=== PATIENT | female | born 1995 | race African-American/Black ===

== ENCOUNTER 2017-01-19 11:45 | Emergency (ER) | payer MEDICAID ==
--- NOTE | 2017-01-19 12:11 | ER Document Report ---
ED Medical Screen (RME) - General Stated Complaint: HEADACHES,ABDOMINAL CRAMPS,NAUSEA Notes: patient complains of headache, abdominal cramping, and nauseous for several days. No vomiting or diarrhea, no fever. Patient had Mirena inserted in September 2015, and is concerned about placement. She cannot feel the strings. I have greeted and performed a rapid initial assessment of this patient. A comprehensive ED assessment and evaluation of the patient, analysis of test results and completion of the medical decision making process will be conducted by additional ED providers. TRAVEL OUTSIDE OF THE [place] IN LAST 30 DAYS: No - Related Data Allergies/Adverse Reactions: No Known Allergies Allergy (Verified 06/11/15 23:07) Past Medical History - Past Medical History Cardiac Medical History: Reports: Hx Hypertension Pulmonary Medical History: Reports: Hx Bronchitis Denies: Hx Asthma GI Medical History: Denies: Hx Crohn's Disease, Hx Irritable Bowel, Hx Ulcerative Colitis Past Surgical History: Reports: Hx Section - Immunizations Hx Diphtheria, Pertussis, Tetanus Vaccination: Yes Physical Exam - Vital signs Vitals: Temp Pulse Resp BP Pulse Ox 98.1 F 79 16 128/75 H 100 01/19/17 12:04 01/19/17 12:04 01/19/17 12:04 01/19/17 12:04 01/19/17 12:04 Course - Vital Signs Vital signs: Temp Pulse Resp BP Pulse Ox 98.1 F 79 16 128/75 H 100 01/19/17 12:04 01/19/17 12:04 01/19/17 12:04 01/19/17 12:04 01/19/17 12:04
[2017-01-19 12:55] LABS: APPEARANCE,URINE CLEAR; BILIRUBIN,URINE NEGATIVE (NEGATIVE); GLUCOSE, URINE NEGATIVE (NEGATIVE); KETONES,URINE NEGATIVE (NEGATIVE); LEUKOCYTE ESTERASE,URINE NEGATIVE (NEGATIVE); NITRITE,URINE NEGATIVE (NEGATIVE); PROTEIN,URINE NEGATIVE (NEGATIVE); URINE SPECIFIC GRAVITY 1.004; UROBILINOGEN,URINE NEGATIVE mg/dL (<2.0)
[2017-01-19 12:56] LABS: ABSOLUTE EOSINOPHILS # (AUTO) 0.3 10^3/uL (0.0-0.6); ABSOLUTE LYMPHOCYTES (AUTO) 2.3 10^3/uL (0.5-4.7); ABSOLUTE MONOCYTES (AUTO) 0.4 10^3/uL (0.1-1.4); ABSOLUTE NEUT (AUTO) 1.6 10^3/uL (1.7-8.2); BASOPHILS % (AUTO) 0.7 % (0-2); EOSINOPHILS % (AUTO) 6.3 % (0-6); HEMATOCRIT 41.8 % (36.0-47.0); HEMOGLOBIN 14.2 g/dL (12.0-15.5); HGB HCT DIFFERENCE 0.8; LYMPHOCYTES % (AUTO) 48.7 % (13-45); MEAN CORPUSCULAR HEMOGLOBIN 30.2 pg (27.0-33.4); MEAN CORPUSCULAR HGB CONC 34.1 g/dL (32.0-36.0); MEAN CORPUSCULAR VOLUME 89 fl (80-97); MONOCYTES % (AUTO) 9.7 % (3-13); RED CELL DISTRIBUTION WIDTH 13.3 % (11.5-14.0); SEGMENTED NEUTROPHILS % (AUTO) 34.6 % (42-78); WHITE BLOOD COUNT 4.6 10^3/uL (4.0-10.5)
[2017-01-19 14:34] LABS: ALANINE AMINOTRANSFERASE 37 U/L (9-52); ALBUMIN 5.4 g/dL (3.5-5.0); ALKALINE PHOSPHATASE 64 U/L (38-126); ANION GAP 13 (5-19); ASPARTATE AMINO TRANSFERASE 28 U/L (14-36); BILIRUBIN,DIRECT 0.3 mg/dL (0.0-0.4); BILIRUBIN,TOTAL 1.2 mg/dL (0.2-1.3); BLOOD UREA NITROGEN 10 mg/dL (7-20); CALCIUM 10.5 mg/dL (8.4-10.2); CARBON DIOXIDE 25 mmol/L (22-30); CHLORIDE 105 mmol/L (98-107); CREATININE RESULT 0.74 mg/dL (0.52-1.25); GLUCOSE 77 mg/dL (75-110); SODIUM 143.3 mmol/L (137-145); TOTAL PROTEIN 8.8 g/dL (6.3-8.2)
--- NOTE | 2017-01-19 15:50 | ER Document Report ---
ED GI/ - General Chief Complaint: Abdominal Pain Stated Complaint: HEADACHES,ABDOMINAL CRAMPS,NAUSEA Mode of Arrival: Ambulatory Information source: Patient Notes: Patient presents complaining of lower pelvic cramping and mild headache pain for the past 2 days. Patient states she has had some spotting off and on over the past 2 days. Patient denies any urinary symptoms or vaginal discharge. Patient is concerned that her Mirena is not in its proper location as she has not been able to feel the strings of the Mirena. TRAVEL OUTSIDE OF THE [place] IN LAST 30 DAYS: No - HPI Patient complains to provider of: Pelvic pain Onset: Yesterday Timing/Duration: denies: Gradual Quality of pain: Cramping Pain Level: 2 Location: Pelvis Vaginal bleeding (Compared to normal period): Spotting Sexual history: Active Associated symptoms: denies: Diarrhea, Dysuria, Urinary hesitancy, Urinary frequency, Urinary retention, Urinary urgency, Vaginal discharge, Vomiting - Related Data Allergies/Adverse Reactions: No Known Allergies Allergy (Verified 01/19/17 12:11) Past Medical History - General Information source: Patient Last Menstrual Period: 12/16/2016 - Social History Smoking Status: Never Smoker Chew tobacco use (# tins/day): No Frequency of alcohol use: None Drug Abuse: None Occupation: student Lives with: Family Family History: Reviewed & Not Pertinent - Medical History Medical History: Negative - Past Medical History Cardiac Medical History: Reports: Hx Hypertension Pulmonary Medical History: Reports: Hx Bronchitis Denies: Hx Asthma Renal/ Medical History: Denies: Hx Peritoneal Dialysis GI Medical History: Denies: Hx Crohn's Disease, Hx Irritable Bowel, Hx Ulcerative Colitis Past Surgical History: Reports: Hx Section - Immunizations Hx Diphtheria, Pertussis, Tetanus Vaccination: Yes Review of Systems - Review of Systems Constitutional: No symptoms reported. denies: Fever, Recent illness EENT: No symptoms reported Cardiovascular: No symptoms reported. denies: Chest pain Respiratory: No symptoms reported. denies: Cough, Short of breath Gastrointestinal: Abdominal pain. denies: Nausea, Vomiting Genitourinary: No symptoms reported. denies: Dysuria, Flank pain Female Genitourinary: Vaginal bleeding. denies: Vaginal discharge Musculoskeletal: No symptoms reported. denies: Back pain Skin: No symptoms reported Hematologic/Lymphatic: No symptoms reported Neurological/Psychological: Headaches - Frontal headache, patient states pain is improved at this time Physical Exam - Vital signs Vitals: Temp Pulse Resp BP Pulse Ox 98.1 F 79 16 128/75 H 100 01/19/17 12:04 01/19/17 12:04 01/19/17 12:04 01/19/17 12:04 01/19/17 12:04 - General General appearance: Appears well, Alert In distress: None Notes: PHYSICAL EXAMINATION: GENERAL: Well-appearing and in no acute distress. HEAD: Atraumatic, normocephalic. EYES: sclera anicteric, conjunctiva are normal. ENT: nares patent. Moist mucous membranes. NECK: Normal range of motion, supple without lymphadenopathy LUNGS: CTAB and equal. No wheezes rales or rhonchi. HEART: Regular rate and rhythm without murmurs ABDOMEN: Soft, nontender, normal bowel sounds, no guarding. EXTREMITIES: Normal range of motion, no pitting edema. No cyanosis. BACK: No CVA tenderness NEUROLOGICAL: Cranial nerves grossly intact. Normal speech. Normal gait. PSYCH: Normal mood, normal affect. SKIN: Warm, Dry, normal turgor, no rashes or lesions noted - Genitourinary External exam: Normal Speculum exam: Normal Vaginal bleeding: Mild Bimanuel exam: Normal. No: Cervical motion tender, Adnexal tenderness Notes: No visualized strings of IUD device Course - Vital Signs Vital signs: Temp Pulse Resp BP Pulse Ox 98.6 F 91 12 126/72 H 98 01/19/17 17:24 01/19/17 17:24 01/19/17 17:24 01/19/17 17:24 01/19/17 17:24 - Laboratory Result Diagrams: 01/19/17 12:30 01/19/17 13:58 Laboratory results interpreted by me: 01/19/17 01/19/17 12:30 13:58 Seg Neutrophils % 34.6 L Lymphocytes % 48.7 H Eosinophils % 6.3 H Absolute Neutrophils 1.6 L Calcium 10.5 H Total Protein 8.8 H Albumin 5.4 H 01/19/17 16:58 Labs- Entire Visit 01/19/17 01/19/17 01/19/17 12:30 12:30 12:30 WBC 4.6 RBC 4.70 Hgb 14.2 Hct 41.8 MCV 89 MCH 30.2 MCHC 34.1 RDW 13.3 Plt Count 189 Seg Neutrophils % 34.6 L Lymphocytes % 48.7 H Monocytes % 9.7 Eosinophils % 6.3 H Basophils % 0.7 Absolute Neutrophils 1.6 L Absolute Lymphocytes 2.3 Absolute Monocytes 0.4 Absolute Eosinophils 0.3 Absolute Basophils 0.0 Sodium Cancelled Potassium Cancelled Chloride Cancelled Carbon Dioxide Cancelled Anion Gap Cancelled BUN Cancelled Creatinine Cancelled Est GFR ( Amer) Cancelled Est GFR (Non-Af Amer) Cancelled Glucose Cancelled Calcium Cancelled Total Bilirubin Cancelled Direct Bilirubin Cancelled Indirect Bilirubin Cancelled Neonat Total Bilirubin Cancelled AST Cancelled ALT Cancelled Alkaline Phosphatase Cancelled Total Protein Cancelled Albumin Cancelled Beta HCG, Quant Cancelled Total Beta HCG Cancelled Urine Color STRAW Urine Appearance CLEAR Urine pH 6.0 Ur Specific Sharon 1.004 Urine Protein NEGATIVE Urine Glucose (UA) NEGATIVE Urine Ketones NEGATIVE Urine Blood NEGATIVE Urine Nitrite NEGATIVE Urine Bilirubin NEGATIVE Urine Urobilinogen NEGATIVE Ur Leukocyte Esterase NEGATIVE Urine WBC (Auto) 1 Squamous Epi Cells Auto 1 Urine Ascorbic Acid NEGATIVE Trichomonas (Wet Prep) Vaginal WBC Vaginal RBC Vaginal Yeast 01/19/17 01/19/17 13:58 15:49 WBC RBC Hgb Hct MCV MCH MCHC RDW Plt Count Seg Neutrophils % Lymphocytes % Monocytes % Eosinophils % Basophils % Absolute Neutrophils Absolute Lymphocytes Absolute Monocytes Absolute Eosinophils Absolute Basophils Sodium 143.3 Potassium 4.0 Chloride 105 Carbon Dioxide 25 Anion Gap 13 BUN 10 Creatinine 0.74 Est GFR ( Amer) > 60 Est GFR (Non-Af Amer) > 60 Glucose 77 Calcium 10.5 H Total Bilirubin 1.2 Direct Bilirubin 0.3 Indirect Bilirubin Not Reportable Neonat Total Bilirubin Not Reportable AST 28 ALT 37 Alkaline Phosphatase 64 Total Protein 8.8 H Albumin 5.4 H Beta HCG, Quant < 2.39 Total Beta HCG NEGATIVE Urine Color Urine Appearance Urine pH Ur Specific Sharon Urine Protein Urine Glucose (UA) Urine Ketones Urine Blood Urine Nitrite Urine Bilirubin Urine Urobilinogen Ur Leukocyte Esterase Urine WBC (Auto) Squamous Epi Cells Auto Urine Ascorbic Acid Trichomonas (Wet Prep) NO TRICHOMONAS SEEN Vaginal WBC RARE WBCS SEEN Vaginal RBC 3+ RBCS SEEN Vaginal Yeast NO YEAST SEEN 01/19/17 18:24 - Diagnostic Test Radiology reviewed: Reports reviewed Discharge - Discharge Clinical Impression: Dysmenorrhea Headache Qualifiers: Headache type: unspecified Headache chronicity pattern: unspecified pattern Intractability: not intractable Qualified Code(s): R51 - Headache Condition: Stable Disposition: HOME, SELF-CARE Instructions: Dysmenorrhea ([facility]), Anti-Inflammatory Medication ([facility]), Headache ([facility]) Additional Instructions: Return immediately for any new or worsening symptoms Followup with your primary care provider, call tomorrow to make a followup appointment Ultrasound showed that your IUD was in correct position Follow-up with script writer for further evaluation Prescriptions: Naproxen [Naprosyn 250 Nmg Tablet] 1 tab PO BID #14 tablet Referrals: [facility] [Provider Group] - 01/22/17
[2017-01-19 17:26] VITALS: BP 126/72
[2017-01-19 17:34] LABS: CHLAM PCR NOT DETECTED (NOT DETECT)
== END 2017-01-19 17:15 | disposition home or self-care (01) ==
LOC: ER 11:45
DX: N94.6 Dysmenorrhea, unspecified (principal); R51 Headache; R10.9 Unspecified abdominal pain; R11.0 Nausea
CPT/HCPCS: 36415; 76830; 80053; 81001; 84702; 85025; 87210; 87491; 87591; 93976; 99284

== ENCOUNTER 2017-04-11 08:45 | Emergency (ER) | payer MEDICAID ==
[2017-04-11 08:54] VITALS: BP 129/78
--- NOTE | 2017-04-11 09:30 | ER Document Report ---
HPI - HPI Patient complains to provider of: neck pain Pain Level: 4 Context: 22 yo female c/o right sided neck pain x 4 days. pt injured neck while "rough housing". denies any LOC or hitting her head. no n/v. painful to move neck. + pain to right ear with decreased hearing. pt denies any other injury. Associated Symptoms: None Exacerbated by: Movement Relieved by: Denies Similar symptoms previously: No Recently seen / treated by doctor: No - ROS Systems Reviewed and Negative: Yes All other systems reviewed and negative - REPRODUCTIVE LMP: Reproductive: DENIES: : - DERM Skin Color: Normal Past Medical History - General Information source: Patient - Social History Smoking Status: Former Smoker Chew tobacco use (# tins/day): No Frequency of alcohol use: None Drug Abuse: None Lives with: Family Family History: Reviewed & Not Pertinent Patient has suicidal ideation: No Patient has homicidal ideation: No - Past Medical History Cardiac Medical History: Reports: Hx Hypertension Pulmonary Medical History: Reports: Hx Bronchitis Denies: Hx Asthma Renal/ Medical History: Denies: Hx Peritoneal Dialysis GI Medical History: Denies: Hx Crohn's Disease, Hx Irritable Bowel, Hx Ulcerative Colitis Past Surgical History: Reports: Hx Section - Immunizations Hx Diphtheria, Pertussis, Tetanus Vaccination: No Vertical Provider Document - CONSTITUTIONAL Agree With Documented VS: Yes Exam Limitations: No Limitations - INFECTION CONTROL TRAVEL OUTSIDE OF THE [place] IN LAST 30 DAYS: No - HEENT HEENT: Atraumatic, PERRLA Notes: TMs normal bilat. EAC normal bilat - NECK Neck: Other - c spine nontender. + focal tenderness right sternocleidomastoid and trapezius muscles. neck supple but painful with lateral rotation. - RESPIRATORY Respiratory: Breath Sounds Normal, No Respiratory Distress O2 Sat by Pulse Oximetry: 99 - CARDIOVASCULAR Cardiovascular: Regular Rate, Regular Rhythm - GI/ABDOMEN Gastrointestinal: Abdomen Soft, Abdomen Non-Tender - MUSCULOSKELETAL/EXTREMETIES Musculoskeletal/Extremeties: MAEW, FROM, Non-Tender - NEURO Level of Consciousness: Awake, Alert, Appropriate - DERM Integumentary: Warm, Dry Course - Re-evaluation Re-evalutation: 04/11/17 09:29 pt has no cervical tenderness. all discomfort is soft tissue. no xrays indicated. pt will be discharged home with muscle relaxant and anti- inflammatory medications. gentle stretches demonstrated for patient. pt is stable for discharge and agreeable with plan - Vital Signs Vital signs: Temp Pulse Resp BP Pulse Ox 98.1 F 95 14 129/78 H 99 04/11/17 08:51 04/11/17 08:51 04/11/17 08:51 04/11/17 08:51 04/11/17 08:51 Discharge - Discharge Clinical Impression: Neck muscle strain Qualifiers: Encounter type: initial encounter Qualified Code(s): S16.1XXA - Strain of muscle, fascia and tendon at neck level, initial encounter Condition: Stable Disposition: HOME, SELF-CARE Instructions: Muscle Strain ([facility]), Muscle Relaxers ([facility]), Ibuprofen (General) ( [facility]), Warm Packs ([facility]) Additional Instructions: take medications as prescribed gentle stretches to affected muscles follow up with your primary care if symptoms persist Prescriptions: Ibuprofen [Motrin 800 Mg Tablet] 800 mg PO Q6H #20 tablet Methocarbamol [Robaxin 500 Mg Tablet] 1,000 mg PO Q6 #30 tablet Forms: Return to Work
== END 2017-04-11 09:43 | disposition home or self-care (01) ==
LOC: ER 08:45
DX: S16.1XXA Strain of muscle, fascia and tendon at neck level, initial encounter (principal); M54.2 Cervicalgia; Z87.891 Personal history of nicotine dependence; X58.XXXA Exposure to other specified factors, initial encounter
CPT/HCPCS: 99283

== ENCOUNTER 2017-04-19 22:27 | Emergency (ER) | payer MEDICAID ==
[2017-04-20] MEDS ORDERED: NORMAL SALINE 1000 ML 1,000 ML IV ONE (01:15)
[2017-04-20] MEDS ORDERED: ONDANSETRON HCL INJ/PF 4 MG/2 ML SDV IV ONE (01:16)
[2017-04-20 01:56] LABS: ANION GAP 11 (5-19); BLOOD UREA NITROGEN 7 mg/dL (7-20); CALCIUM 9.6 mg/dL (8.4-10.2); CARBON DIOXIDE 24 mmol/L (22-30); CHLORIDE 106 mmol/L (98-107); CREATINE KINASE 124 U/L (30-135); CREATININE RESULT 0.65 mg/dL (0.52-1.25); GLUCOSE 87 mg/dL (75-110); POTASSIUM 4.1 mmol/L (3.6-5.0); SODIUM 140.5 mmol/L (137-145)
--- NOTE | 2017-04-20 02:10 | ER Document Report ---
ED General - General Chief Complaint: Nausea/Vomiting/Diarrhea Stated Complaint: VOMITING Time Seen by Provider: 04/20/17 00:53 Notes: Patient is a 22-year-old female past medical history of a prior section who presents with multiple complaints including nausea, vomiting, diarrhea and a feeling of generalized malaise after standing out side in the heat for approximately 2 hours. Nothing improves or worsens her symptoms. She denies any history of similar symptoms in the past. She denies any focal weakness, numbness, altered mental status, headache, or focal abdominal pain. She has not seen her primary care doctor regarding today's concerns. Notes that her symptoms are improving time of my assessment receiving IV fluids and antiemetics. TRAVEL OUTSIDE OF THE [place] IN LAST 30 DAYS: No - Related Data Allergies/Adverse Reactions: banana Allergy (Verified 04/11/17 09:16) Swelling of Throat cat dander Allergy (Verified 04/11/17 09:16) Swelling of Throat kiwi Allergy (Verified 04/11/17 09:16) Swelling of Throat Past Medical History - General Information source: Patient - Social History Smoking Status: Never Smoker Frequency of alcohol use: None Drug Abuse: None Lives with: Spouse/Significant other Family History: Reviewed & Not Pertinent Patient has suicidal ideation: No Patient has homicidal ideation: No - Past Medical History Cardiac Medical History: Reports: Hx Hypertension Pulmonary Medical History: Reports: Hx Bronchitis Denies: Hx Asthma Renal/ Medical History: Denies: Hx Peritoneal Dialysis GI Medical History: Denies: Hx Crohn's Disease, Hx Irritable Bowel, Hx Ulcerative Colitis Past Surgical History: Reports: Hx Section - Immunizations Hx Diphtheria, Pertussis, Tetanus Vaccination: No Review of Systems - Review of Systems Notes: Constitutional: Negative for fever. HENT: Negative for sore throat. Eyes: Negative for visual changes. Cardiovascular: Negative for chest pain. Respiratory: Negative for shortness of breath. Gastrointestinal: Positive for nausea, vomiting and diarrhea Genitourinary: Negative for dysuria. Musculoskeletal: Negative for back pain. Skin: Negative for rash. Neurological: Negative for headaches, weakness or numbness. 10 point ROS negative except as marked above and in HPI. Physical Exam - Vital signs Vitals: Temp Pulse Resp BP Pulse Ox 98.3 F 76 18 129/93 H 100 04/19/17 22:51 04/19/17 22:51 04/19/17 22:51 04/19/17 22:51 04/19/17 22:51 Interpretation: Normal Notes: PHYSICAL EXAMINATION: GENERAL: Well-appearing, well-nourished and in no acute distress. HEAD: Atraumatic, normocephalic. EYES: Pupils equal round and reactive to light, extraocular movements intact, sclera anicteric, conjunctiva are normal. ENT: nares patent, oropharynx clear without exudates. Moist mucous membranes. NECK: Normal range of motion, supple without lymphadenopathy LUNGS: Breath sounds clear to auscultation bilaterally and equal. No wheezes rales or rhonchi. HEART: Regular rate and rhythm without murmurs ABDOMEN: Soft, nontender, normoactive bowel sounds. No guarding, no rebound. No masses appreciated. EXTREMITIES: Normal range of motion, no pitting or edema. No cyanosis. NEUROLOGICAL: No focal neurological deficits. Moves all extremities spontaneously and on command. PSYCH: Normal mood, normal affect. SKIN: Warm, Dry, normal turgor, no rashes or lesions noted. Course - Re-evaluation Re-evalutation: 04/20/17 02:06 Patient presents with multiple vague complaints that did not appear to be concerning for any acute life-threatening pathology. Vitals are within normal limits at triage and at time of discharge. Physical examination is unremarkable. Patient has tolerated oral intake without difficulty. Patient was not noted to be in distress at any point during their ER visit. At this time, based on the reassuring evaluation, I do not suspect an acute NV, pulmonary embolus, aortic dissection, acute intra-abdominal pathology, stroke, or sepsis.Will discharge with return precautions and follow-up recommendations. Laboratories are unremarkable and do not demonstrate any evidence of significant dehydration or . Verbal discharge instructions given a the bedside and opportunity for questions given. Medication warnings reviewed. Patient is in agreement with this plan and has verbalized understanding of return precautions and the need for primary care follow-up in the next 24-72 hours. - Vital Signs Vital signs: Temp Pulse Resp BP Pulse Ox 98.3 F 76 18 129/93 H 100 04/19/17 22:51 04/19/17 22:51 04/19/17 22:51 04/19/17 22:51 04/19/17 22:51 - Laboratory Result Diagrams: 04/20/17 01:30 Discharge - Discharge Clinical Impression: Nausea and vomiting Qualifiers: Vomiting type: unspecified Vomiting Intractability: non-intractable Qualified Code(s): R11.2 - Nausea with vomiting, unspecified Diarrhea Qualifiers: Diarrhea type: unspecified type Qualified Code(s): R19.7 - Diarrhea, unspecified Condition: Good Disposition: HOME, SELF-CARE Additional Instructions: Your labs are normal today. Please return to the emergency room immediately if you experience any concerning symptoms including high fevers, severe headache, chest pain, difficulty breathing, abdominal pain, slurred speech, numbness or weakness in your arms or legs, or any other symptom that concerns you.
[2017-04-20 02:39] VITALS: BP 122/82
== END 2017-04-20 02:39 | disposition home or self-care (01) ==
LOC: ER 22:27
DX: R11.2 Nausea with vomiting, unspecified (principal); R19.7 Diarrhea, unspecified; R53.81 Other malaise; Z91.018 Allergy to other foods; Z91.048 Other nonmedicinal substance allergy status; I10 Essential (primary) hypertension
CPT/HCPCS: 99283; 96361; 96374; 36415; 82550; 84703; 80048; J2405; J7030

== ENCOUNTER 2017-05-24 05:32 | Day surgery (SDC) | payer MEDICAID ==
[2017-05-24 06:14] LABS: APPEARANCE,URINE SLIGHTLY-CLOUDY; BILIRUBIN,URINE NEGATIVE (NEGATIVE); GLUCOSE, URINE NEGATIVE (NEGATIVE); KETONES,URINE NEGATIVE (NEGATIVE); LEUKOCYTE ESTERASE,URINE NEGATIVE (NEGATIVE); NITRITE,URINE NEGATIVE (NEGATIVE); PROTEIN,URINE NEGATIVE (NEGATIVE); UROBILINOGEN,URINE NEGATIVE mg/dL (<2.0)
[2017-05-24 06:14] LABS: HEMATOCRIT 37.7 % (36.0-47.0); HEMOGLOBIN 13.1 g/dL (12.0-15.5); HGB HCT DIFFERENCE 1.6; MEAN CORPUSCULAR HEMOGLOBIN 30.8 pg (27.0-33.4); MEAN CORPUSCULAR HGB CONC 34.8 g/dL (32.0-36.0); MEAN CORPUSCULAR VOLUME 89 fl (80-97); RED BLOOD COUNT 4.26 10^6/uL (3.72-5.28); RED CELL DISTRIBUTION WIDTH 13.2 % (11.5-14.0); WHITE BLOOD COUNT 6.5 10^3/uL (4.0-10.5)
[2017-05-24] MEDS ORDERED: LIDOCAINE 2% INJ-PF (20 MG/ML) 10 ML AMPUL ONE (06:59)
[2017-05-24] MEDS ORDERED: FENTANYL CITRATE INJ/PF 100 MCG/2 ML AMPUL ONE (06:59)
[2017-05-24] MEDS ORDERED: MIDAZOLAM 2 MG/2 ML INJ ONE (07:00)
[2017-05-24] MEDS ORDERED: PROPOFOL INJ 200 MG/20 ML VIAL IV ONE (07:00)
[2017-05-24] MEDS ORDERED: OXYCODONE-ACETAMINOPHEN 5-325 MG TABLET PO PRN ×4 (07:41→08:20)
[2017-05-24] MEDS ORDERED: PROMETHAZINE HCL INJ 25 MG/1 ML VIAL IV PRN ×2 (07:41)
[2017-05-24] MEDS ORDERED: MORPHINE SULFATE 10 MG/ML INJ IV PRN (07:41)
[2017-05-24] MEDS ORDERED: ONDANSETRON HCL INJ/PF 4 MG/2 ML SDV IV PRN (07:41)
[2017-05-24] MEDS ORDERED: DIPHENHYDRAMINE HCL 50 MG/ML VIAL IV PRN (07:41)
[2017-05-24] MEDS ORDERED: FENTANYL CITRATE INJ/PF 100 MCG/2 ML AMPUL IV PRN ×3 (07:41)
[2017-05-24] MEDS ORDERED: MEPERIDINE HCL/PF INJ 25 MG/1 ML DISP.SYRIN IV PRN (07:41)
--- NOTE | 2017-05-24 07:57 | Operative Report ---
Operative Report DATE OF SURGERY: 05/24/17 PREOPERATIVE DIAGNOSIS: Retained IUD that could not be removed in the office POSTOPERATIVE DIAGNOSIS: Same OPERATION: IUD removal SURGEON: ANJANA SIFUENTES ANESTHESIA: GA TISSUE REMOVED OR ALTERED: IUD COMPLICATIONS: None ESTIMATED BLOOD LOSS: None INTRAOPERATIVE FINDINGS: Normal female pelvis PROCEDURE: Patient was taken to the OR placed in supine position. General anesthesia was induced. Her perineum and vagina were prepared and draped in sterile fashion. Speculum was placed. The IUD is removed with a stone polyp forceps. All instruments removed and she is taken out of lithotomy and brought out of anesthesia. Patient had had several times in the office to remove the IUD string could not be seen. Her cervical os is very small which I imagine was the difficulty with movement removing the IUD in the office.
[2017-05-24] MEDS ORDERED: IBUPROFEN 800 MG TABLET PO PRN (08:19)
[2017-05-24] MEDS ORDERED: RINGERS SOLUTION,LACTATED 1,000 ML IV PRN (08:19)
[2017-05-24 10:28] VITALS: BP 110/75
== END 2017-05-24 10:10 | disposition home or self-care (01) ==
LOC: OROUT 05:32
PROVIDERS: ATTEND Obstetrics & Gynecology
PROC: 0UPD7HZ Removal of Contraceptive Device from Uterus and Cervix, Via Natural or Artificial Opening (ICD-10-PCS; principal; 2017-05-24 07:30)
DX: Z30.432 Encounter for removal of intrauterine contraceptive device (principal)
CPT/HCPCS: 36415; 84703; 85027; 81001; 58301; J2250; J2704; J3490; 940; J3010

== ENCOUNTER 2017-07-26 18:38 | Emergency (ER) | payer MEDICAID ==
[2017-07-26 18:44] VITALS: BP 133/85
--- NOTE | 2017-07-26 20:20 | ER Document Report ---
ED Respiratory Problem - General Chief Complaint: Congestion Stated Complaint: VOMITING,DIARRHEA,CHILLS,HEADACHE Time Seen by Provider: 07/26/17 20:15 Mode of Arrival: Ambulatory Information source: Patient Notes: Patient presents with numerous complaints. She states she has sinus congestion she has a sore throat she has vomiting diarrhea chills she is having stomach cramps and she also has migraines. She states that she was recently diagnosed with sinusitis but finished all the antibiotics and does not feel any better. She also states she takes Mucinex but this made it worse. She states she has been using her albuterol inhaler but it does not help. She states she would like a different inhaler. There is nothing known to make the symptoms better or worse at this time. The symptoms are constant. They are moderate. TRAVEL OUTSIDE OF THE [place] IN LAST 30 DAYS: No - Related Data Allergies/Adverse Reactions: banana Allergy (Verified 07/26/17 18:42) Swelling of Throat cat dander Allergy (Verified 07/26/17 18:42) Swelling of Throat kiwi Allergy (Verified 07/26/17 18:42) Swelling of Throat Past Medical History - General Information source: Patient - Social History Smoking Status: Never Smoker Chew tobacco use (# tins/day): No Frequency of alcohol use: None Drug Abuse: None Family History: Reviewed & Not Pertinent - Past Medical History Cardiac Medical History: Reports: Hx Hypertension - occ-no meds Denies: Hx Coronary Artery Disease, Hx Heart Attack Pulmonary Medical History: Reports: Hx Bronchitis - hx of Denies: Hx Asthma, Hx COPD, Hx Pneumonia Neurological Medical History: Denies: Hx Cerebrovascular Accident, Hx Seizures Renal/ Medical History: Denies: Hx Peritoneal Dialysis GI Medical History: Denies: Hx Crohn's Disease, Hx Irritable Bowel, Hx Ulcerative Colitis Musculoskeltal Medical History: Denies Hx Arthritis Past Surgical History: Reports: Hx Section - Immunizations Hx Diphtheria, Pertussis, Tetanus Vaccination: Yes Review of Systems - Review of Systems Constitutional: Chills, Fever, Malaise, Weakness Cardiovascular: denies: Chest pain, Palpitations Respiratory: Cough, Short of breath Genitourinary: denies: Dysuria, Frequency Physical Exam - Vital signs Vitals: Temp Pulse Resp BP Pulse Ox 98.9 F 94 16 133/85 H 97 07/26/17 18:44 07/26/17 18:44 07/26/17 18:44 07/26/17 18:44 07/26/17 18:44 Interpretation: Hypertensive - General General appearance: Appears well, Alert - HEENT Head: Normocephalic, Atraumatic Eyes: Normal Pupils: PERRL - Respiratory Respiratory status: No respiratory distress Chest status: Nontender Breath sounds: Normal Chest palpation: Normal - Cardiovascular Rhythm: Regular Heart sounds: Normal auscultation Murmur: No - Abdominal Inspection: Normal Distension: No distension Bowel sounds: Normal Tenderness: Nontender Organomegaly: No organomegaly - Back Back: Normal, Nontender - Extremities General upper extremity: Normal inspection, Nontender, Normal color, Normal ROM , Normal temperature General lower extremity: Normal inspection, Nontender, Normal color, Normal ROM , Normal temperature, Normal weight bearing. No: John's sign - Neurological Neuro grossly intact: Yes Cognition: Normal Orientation: AAOx4 [place] Coma Scale Eye Opening: Spontaneous [place] Coma Scale Verbal: Oriented [place] Coma Scale Motor: Obeys Commands [place] Coma Scale Total: 15 Speech: Normal Motor strength normal: LUE, RUE, LLE, RLE Sensory: Normal - Psychological Associated symptoms: Normal affect, Normal mood - Skin Skin Temperature: Warm Skin Moisture: Dry Skin Color: Normal Course - Vital Signs Vital signs: Temp Pulse Resp BP Pulse Ox 98.9 F 94 16 133/85 H 97 07/26/17 18:44 07/26/17 18:44 07/26/17 18:44 07/26/17 18:44 07/26/17 18:44 Discharge - Discharge Clinical Impression: URI (upper respiratory infection) Condition: Stable Disposition: HOME, SELF-CARE Instructions: Upper Respiratory Illness ([facility]), Viral Syndrome ([facility]) Additional Instructions: Follow-up with your primary care doctor as soon as possible. Prescriptions: Levalbuterol Tartrate [Xopenex Hfa] 2 puff IH Q12 PRN #1 inh PRN Reason: Levofloxacin [Levaquin 750 mg Tablet] 750 mg PO DAILY #7 tablet
== END 2017-07-26 21:47 | disposition home or self-care (01) ==
LOC: ER 18:38
DX: J06.9 Acute upper respiratory infection, unspecified (principal); R09.81 Nasal congestion; R11.10 Vomiting, unspecified; R19.7 Diarrhea, unspecified; R51 Headache; J02.9 Acute pharyngitis, unspecified
CPT/HCPCS: 99283

== ENCOUNTER 2017-12-22 17:53 | Emergency (ER) | payer SELFPAY ==
[2017-12-22] MEDS ORDERED: METOCLOPRAMIDE HCL INJ/PF 10 MG/2 ML SDV IV ONE (19:28)
[2017-12-22] MEDS ORDERED: DIPHENHYDRAMINE HCL 50 MG/ML VIAL IV ONE (19:28)
[2017-12-22] MEDS ORDERED: NORMAL SALINE 1000 ML 1,000 ML IV ONE (19:28)
[2017-12-22] MEDS ORDERED: ACETAMINOPHEN 325 MG TABLET PO ONE (19:30)
--- NOTE | 2017-12-22 19:32 | ER Document Report ---
ED General - General Chief Complaint: Vomiting/Diarrhea Stated Complaint: VOMITING,HEADACHE,DIZZINESS Time Seen by Provider: 12/22/17 19:15 Mode of Arrival: Ambulatory Information source: Patient Notes: Patient presents complaining of headache, vomiting and diarrhea starting around 3 PM today. Patient states that she did have a positive home test recently but that the line was somewhat blurred so she would like to have this confirmed today. Patient does complain of upper abdominal tenderness. Patient denies any urinary symptoms. Patient states she is vomited about 8 times and had diarrhea 5 times today. Patient also reports that she has had some blurred vision since her headache started. TRAVEL OUTSIDE OF THE [place] IN LAST 30 DAYS: No - HPI Onset: This afternoon Onset/Duration: Gradual Quality of pain: Sharp Pain Level: 4 Associated symptoms: Diarrhea, Headache, Nausea, Vomiting. denies: Chest pain, Nonproductive cough, Productive cough, Fever Exacerbated by: Denies Relieved by: Denies Similar symptoms previously: No Recently seen / treated by doctor: No - Related Data Allergies/Adverse Reactions: banana Allergy (Verified 07/26/17 18:42) Swelling of Throat cat dander Allergy (Verified 07/26/17 18:42) Swelling of Throat kiwi Allergy (Verified 07/26/17 18:42) Swelling of Throat Past Medical History - General Information source: Patient - Social History Smoking Status: Former Smoker Chew tobacco use (# tins/day): No Frequency of alcohol use: None Drug Abuse: None Lives with: Family Family History: Reviewed & Not Pertinent Patient has suicidal ideation: No Patient has homicidal ideation: No - Past Medical History Cardiac Medical History: Denies: Hx Coronary Artery Disease, Hx Heart Attack Pulmonary Medical History: Reports: Hx Bronchitis - hx of Denies: Hx Asthma, Hx COPD, Hx Pneumonia Neurological Medical History: Denies: Hx Cerebrovascular Accident, Hx Seizures Renal/ Medical History: Denies: Hx Peritoneal Dialysis GI Medical History: Denies: Hx Crohn's Disease, Hx Irritable Bowel, Hx Ulcerative Colitis Musculoskeltal Medical History: Denies Hx Arthritis Past Surgical History: Reports: Hx Section - Immunizations Hx Diphtheria, Pertussis, Tetanus Vaccination: Yes Review of Systems - Review of Systems Constitutional: No symptoms reported. denies: Fever EENT: Blurred vision. denies: Eye pain Cardiovascular: No symptoms reported. denies: Chest pain Respiratory: No symptoms reported. denies: Cough Gastrointestinal: Abdominal pain, Diarrhea, Nausea, Vomiting, Poor fluid intake Genitourinary: No symptoms reported. denies: Dysuria Female Genitourinary: Musculoskeletal: No symptoms reported. denies: Back pain Skin: No symptoms reported Hematologic/Lymphatic: No symptoms reported Neurological/Psychological: Headaches. denies: Weakness Physical Exam - Vital signs Vitals: Temp Pulse Resp BP Pulse Ox 98.0 F 82 16 120/87 H 100 12/22/17 18:15 12/22/17 18:15 12/22/17 18:15 12/22/17 18:15 12/22/17 18:15 - General General appearance: Appears well, Alert In distress: None - HEENT Head: Normocephalic, Atraumatic Eyes: Normal Conjunctiva: Normal Nasal: Normal Mouth/Lips: Normal Pharynx: Normal Neck: Normal, Supple. No: Lymphadenopathy, Meningismus - Respiratory Respiratory status: No respiratory distress Chest status: Nontender Breath sounds: Normal. No: Rales, Rhonchi, Stridor, Wheezing Chest palpation: Normal - Cardiovascular Rhythm: Regular Heart sounds: S1 appreciated, S2 appreciated Murmur: No - Abdominal Inspection: Normal Distension: No distension Bowel sounds: Normal Tenderness: Tender - epigastric Organomegaly: No organomegaly - Back Back: Normal, Nontender. No: CVA tenderness, Vertebra tenderness - Extremities General upper extremity: Normal inspection, Nontender, Normal ROM General lower extremity: Normal inspection, Nontender, Normal ROM - Neurological Neuro grossly intact: Yes Cognition: Normal Orientation: AAOx4 [place] Coma Scale Eye Opening: Spontaneous [place] Coma Scale Verbal: Oriented [place] Coma Scale Motor: Obeys Commands [place] Coma Scale Total: 15 Speech: Normal - Psychological Associated symptoms: Normal affect, Normal mood - Skin Skin Temperature: Warm Skin Moisture: Dry Skin Color: Normal Course - Re-evaluation Re-evalutation: 12/22/17 20:36 Patient reports that headache pain is resolved, nausea is resolved and abdominal pain is currently resolved at this time. 12/22/17 21:00 Patient continues to deny any headache nausea or abdominal pain at this time. Discussed results of diagnostic test with patient. Patient encouraged to follow -up with primary doctor for recheck. Patient presents with abdominal pain without signs of peritonitis or other life-threatening or serious etiology. Patient appears stable for discharge and has been instructed to return immediately if the symptoms worsen in any way for reevaluation. - Vital Signs Vital signs: Temp Pulse Resp BP Pulse Ox 97.5 F 76 16 115/73 99 12/22/17 21:52 12/22/17 21:52 12/22/17 21:52 12/22/17 21:52 12/22/17 21:52 - Laboratory Result Diagrams: 12/22/17 19:55 12/22/17 19:55 Laboratory results interpreted by me: 12/22/17 12/22/17 12/22/17 19:55 19:55 19:55 WBC 10.8 H Seg Neutrophils % 84.9 H Lymphocytes % 11.0 L Absolute Neutrophils 9.2 H Potassium 3.5 L Urine Ketones 20 H Labs- Entire Visit 12/22/17 12/22/17 12/22/17 19:55 19:55 19:55 WBC 10.8 H RBC 4.79 Hgb 14.2 Hct 41.1 MCV 86 MCH 29.7 MCHC 34.6 RDW 13.5 Plt Count 213 Seg Neutrophils % 84.9 H Lymphocytes % 11.0 L Monocytes % 3.7 Eosinophils % 0.1 Basophils % 0.3 Absolute Neutrophils 9.2 H Absolute Lymphocytes 1.2 Absolute Monocytes 0.4 Absolute Eosinophils 0.0 Absolute Basophils 0.0 Sodium 142.7 Potassium 3.5 L Chloride 106 Carbon Dioxide 25 Anion Gap 12 BUN 7 Creatinine 0.62 Est GFR ( Amer) > 60 Est GFR (Non-Af Amer) > 60 Glucose 90 Calcium 9.8 Total Bilirubin 0.7 Direct Bilirubin 0.1 Neonat Total Bilirubin Not Reportable Neonat Direct Bilirubin Not Reportable Neonat Indirect Bili Not Reportable AST 35 ALT 21 Alkaline Phosphatase 66 Total Protein 7.6 Albumin 4.9 Lipase 48.5 Serum HCG, Qual NEGATIVE Urine Color Urine Appearance Urine pH Ur Specific [place] Urine Protein Urine Glucose (UA) Urine Ketones Urine Blood Urine Nitrite Urine Bilirubin Urine Urobilinogen Ur Leukocyte Esterase Urine WBC (Auto) Urine RBC (Auto) Urine Bacteria (Auto) Squamous Epi Cells Auto Urine Mucus (Auto) Urine Ascorbic Acid 12/22/17 19:55 WBC RBC Hgb Hct MCV MCH MCHC RDW Plt Count Seg Neutrophils % Lymphocytes % Monocytes % Eosinophils % Basophils % Absolute Neutrophils Absolute Lymphocytes Absolute Monocytes Absolute Eosinophils Absolute Basophils Sodium Potassium Chloride Carbon Dioxide Anion Gap BUN Creatinine Est GFR ( Amer) Est GFR (Non-Af Amer) Glucose Calcium Total Bilirubin Direct Bilirubin Neonat Total Bilirubin Neonat Direct Bilirubin Neonat Indirect Bili AST ALT Alkaline Phosphatase Total Protein Albumin Lipase Serum HCG, Qual Urine Color YELLOW Urine Appearance CLEAR Urine pH 9.0 Ur Specific [place] 1.013 Urine Protein NEGATIVE Urine Glucose (UA) NEGATIVE Urine Ketones 20 H Urine Blood NEGATIVE Urine Nitrite NEGATIVE Urine Bilirubin NEGATIVE Urine Urobilinogen NEGATIVE Ur Leukocyte Esterase NEGATIVE Urine WBC (Auto) 1 Urine RBC (Auto) 0 Urine Bacteria (Auto) TRACE Squamous Epi Cells Auto 6 Urine Mucus (Auto) OCC Urine Ascorbic Acid NEGATIVE Discharge - Discharge Clinical Impression: Vomiting and diarrhea, Hypokalemia Headache Qualifiers: Headache type: unspecified Headache chronicity pattern: unspecified pattern Intractability: not intractable Qualified Code(s): R51 - Headache Condition: Stable Disposition: HOME, SELF-CARE Instructions: Acetaminophen, Antinausea Medication ([facility]), Diarrhea, Nonspecific ([facility]), Hypokalemia ([facility]), Intravenous (IV) Fluids ([facility]), Vomiting ( [facility]) Additional Instructions: Return immediately for any new or worsening symptoms Followup with your primary care provider, call tomorrow to make a followup appointment Follow-up with an skidder for visual examination Prescriptions: Promethazine HCl [Phenergan 25 mg Tablet] 25 mg PO Q6H PRN #10 tablet PRN Reason: Forms: Return to Work Referrals: [facility] [Provider Group] - Follow up as needed OFFICE [facility] [Provider Group] - Follow up as needed
[2017-12-22 20:10] LABS: ABSOLUTE LYMPHOCYTES (AUTO) 1.2 10^3/uL (0.5-4.7); ABSOLUTE MONOCYTES (AUTO) 0.4 10^3/uL (0.1-1.4); ABSOLUTE NEUT (AUTO) 9.2 10^3/uL (1.7-8.2); BASOPHILS % (AUTO) 0.3 % (0-2); EOSINOPHILS % (AUTO) 0.1 % (0-6); HEMATOCRIT 41.1 % (36.0-47.0); HEMOGLOBIN 14.2 g/dL (12.0-15.5); MEAN CORPUSCULAR HEMOGLOBIN 29.7 pg (27.0-33.4); MEAN CORPUSCULAR HGB CONC 34.6 g/dL (32.0-36.0); MEAN CORPUSCULAR VOLUME 86 fl (80-97); MONOCYTES % (AUTO) 3.7 % (3-13); PLATELET COUNT 213 10^3/uL (150-450); RED BLOOD COUNT 4.79 10^6/uL (3.72-5.28); RED CELL DISTRIBUTION WIDTH 13.5 % (11.5-14.0); SEGMENTED NEUTROPHILS % (AUTO) 84.9 % (42-78); TOTAL CELLS COUNTED % (AUTO) 100 %; WHITE BLOOD COUNT 10.8 10^3/uL (4.0-10.5)
[2017-12-22] MEDS ORDERED: MAG HYDROX/AL HYDROX/SIMETH SUSP 30 ML UDCUP PO ONE (20:35)
[2017-12-22] MEDS ORDERED: LIDOCAINE 2% VISCOUS SOLN 20 ML UDCUP PO ONE (20:35)
[2017-12-22 20:38] LABS: ALANINE AMINOTRANSFERASE 21 U/L (9-52); ALBUMIN 4.9 g/dL (3.5-5.0); ALKALINE PHOSPHATASE 66 U/L (38-126); ANION GAP 12 (5-19); ASPARTATE AMINO TRANSFERASE 35 U/L (14-36); BILIRUBIN,DIRECT 0.1 mg/dL (0.0-0.4); BILIRUBIN,TOTAL 0.7 mg/dL (0.2-1.3); BLOOD UREA NITROGEN 7 mg/dL (7-20); CALCIUM 9.8 mg/dL (8.4-10.2); CARBON DIOXIDE 25 mmol/L (22-30); CHLORIDE 106 mmol/L (98-107); GLUCOSE 90 mg/dL (75-110); LIPASE 48.5 U/L (23-300); POTASSIUM 3.5 mmol/L (3.6-5.0); SODIUM 142.7 mmol/L (137-145); TOTAL PROTEIN 7.6 g/dL (6.3-8.2)
[2017-12-22 20:46] LABS: BILIRUBIN,URINE NEGATIVE (NEGATIVE); COLOR,URINE YELLOW; GLUCOSE, URINE NEGATIVE (NEGATIVE); KETONES,URINE 20 mg/dL (NEGATIVE); LEUKOCYTE ESTERASE,URINE NEGATIVE (NEGATIVE); NITRITE,URINE NEGATIVE (NEGATIVE); PROTEIN,URINE NEGATIVE (NEGATIVE); URINE SPECIFIC GRAVITY 1.013; UROBILINOGEN,URINE NEGATIVE mg/dL (<2.0)
[2017-12-22 20:47] LABS: APPEARANCE,URINE CLEAR
[2017-12-22] MEDS ORDERED: POTASSIUM CHLORIDE 10 MEQ TABLET.SA PO ONE (20:58)
[2017-12-22 21:54] VITALS: BP 115/73
== END 2017-12-22 21:54 | disposition home or self-care (01) ==
LOC: ER 17:53
DX: R11.2 Nausea with vomiting, unspecified (principal); R10.816 Epigastric abdominal tenderness; E87.6 Hypokalemia; R19.7 Diarrhea, unspecified; R51 Headache; H53.8 Other visual disturbances; Z91.018 Allergy to other foods; Z91.048 Other nonmedicinal substance allergy status; Z87.891 Personal history of nicotine dependence
CPT/HCPCS: 99284; 96361; 96374; 96375; 36415; 83690; 84703; 85025; 80053; 81001; J1200; J2765; J7030

== ENCOUNTER 2019-03-17 15:57 | Emergency (ER) | payer SELFPAY ==
[2019-03-17] MEDS ORDERED: NORMAL SALINE 1000 ML 1,000 ML IV ONE (17:23)
[2019-03-17] MEDS ORDERED: ACETAMINOPHEN 325 MG TABLET PO ONE (17:25)
--- NOTE | 2019-03-17 17:25 | ER Document Report ---
ED Medical Screen (RME) - General Chief Complaint: Abdominal Pain Stated Complaint: ABDOMINAL PAIN Time Seen by Provider: 03/17/19 17:22 Mode of Arrival: Ambulatory Information source: Patient Notes: 24-year-old female with lower abdominal pain she is 2 para 1 5 weeks with cramping and nausea. She states she has not yet had an ultrasound. She denies any vomiting or vaginal bleeding at this time. Will order blood urine and IV fluids at this time. Also have ordered a transvaginal ultrasound. I have greeted and performed a rapid initial assessment of this patient. A comprehensive ED assessment and evaluation of the patient, analysis of test results and completion of medical decision making process will be conducted by an additional ED providers. Dictation of this chart was performed using voice recognition software; therefore, there may be some unintended grammatical errors. TRAVEL OUTSIDE OF THE [place] IN LAST 30 DAYS: No - Related Data Allergies/Adverse Reactions: banana Allergy (Verified 07/26/17 18:42) Swelling of Throat cat dander Allergy (Verified 07/26/17 18:42) Swelling of Throat kiwi Allergy (Verified 07/26/17 18:42) Swelling of Throat Past Medical History - Social History Chew tobacco use (# tins/day): No Frequency of alcohol use: None Drug Abuse: None - Past Medical History Cardiac Medical History: Reports: Hx Hypertension - occ-no meds Denies: Hx Coronary Artery Disease, Hx Heart Attack Pulmonary Medical History: Reports: Hx Bronchitis - hx of Denies: Hx Asthma, Hx COPD, Hx Pneumonia Neurological Medical History: Denies: Hx Cerebrovascular Accident, Hx Seizures Renal/ Medical History: Denies: Hx Peritoneal Dialysis GI Medical History: Denies: Hx Crohn's Disease, Hx Irritable Bowel, Hx Ulcerative Colitis Musculoskeltal Medical History: Denies Hx Arthritis Past Surgical History: Reports: Hx Section - Immunizations Hx Diphtheria, Pertussis, Tetanus Vaccination: Yes Physical Exam - Vital signs Vitals: Temp Pulse Resp BP Pulse Ox 98.5 F 108 H 16 111/66 100 03/17/19 16:28 03/17/19 16:28 03/17/19 16:28 03/17/19 16:28 03/17/19 16:28 Course - Vital Signs Vital signs: Temp Pulse Resp BP Pulse Ox 98.5 F 108 H 16 111/66 100 03/17/19 16:28 03/17/19 16:28 03/17/19 16:28 03/17/19 16:28 03/17/19 16:28
[2019-03-17 18:19] LABS: APPEARANCE,URINE SLIGHTLY-CLOUDY; BILIRUBIN,URINE NEGATIVE (NEGATIVE); COLOR,URINE YELLOW; GLUCOSE, URINE NEGATIVE (NEGATIVE); KETONES,URINE 20 mg/dL (NEGATIVE); LEUKOCYTE ESTERASE,URINE NEGATIVE (NEGATIVE); NITRITE,URINE NEGATIVE (NEGATIVE); PROTEIN,URINE 30 mg/dL (NEGATIVE); URINE SPECIFIC GRAVITY 1.026; UROBILINOGEN,URINE NEGATIVE mg/dL (<2.0)
[2019-03-17 19:07] LABS: ABSOLUTE EOSINOPHILS # (AUTO) 0.1 10^3/uL (0.0-0.6); ABSOLUTE LYMPHOCYTES (AUTO) 2.2 10^3/uL (0.5-4.7); ABSOLUTE MONOCYTES (AUTO) 0.5 10^3/uL (0.1-1.4); ABSOLUTE NEUT (AUTO) 3.7 10^3/uL (1.7-8.2); BASOPHILS % (AUTO) 0.6 % (0-2); EOSINOPHILS % (AUTO) 1.2 % (0-6); HEMOGLOBIN 13.3 g/dL (12.0-15.5); LYMPHOCYTES % (AUTO) 33.6 % (13-45); MEAN CORPUSCULAR HEMOGLOBIN 30.2 pg (27.0-33.4); MEAN CORPUSCULAR HGB CONC 34.2 g/dL (32.0-36.0); MEAN CORPUSCULAR VOLUME 88 fl (80-97); PLATELET COUNT 211 10^3/uL (150-450); RED BLOOD COUNT 4.42 10^6/uL (3.72-5.28); SEGMENTED NEUTROPHILS % (AUTO) 56.6 % (42-78); TOTAL CELLS COUNTED % (AUTO) 100 %; WHITE BLOOD COUNT 6.5 10^3/uL (4.0-10.5)
[2019-03-17 19:12] LABS: ALANINE AMINOTRANSFERASE 30 U/L (9-52); ALBUMIN 4.7 g/dL (3.5-5.0); ALKALINE PHOSPHATASE 55 U/L (38-126); ANION GAP 12 (5-19); ASPARTATE AMINO TRANSFERASE 21 U/L (14-36); BILIRUBIN,DIRECT 0.2 mg/dL (0.0-0.4); BILIRUBIN,TOTAL 0.9 mg/dL (0.2-1.3); BLOOD UREA NITROGEN 8 mg/dL (7-20); CALCIUM 9.9 mg/dL (8.4-10.2); CARBON DIOXIDE 25 mmol/L (22-30); CHLORIDE 101 mmol/L (98-107); GLUCOSE 79 mg/dL (75-110); POTASSIUM 3.6 mmol/L (3.6-5.0); SODIUM 138.2 mmol/L (137-145); TOTAL PROTEIN 7.9 g/dL (6.3-8.2)
--- NOTE | 2019-03-17 20:58 | RADIOLOGY REPORT (SQ) ---
EXAM DESCRIPTION: US TRANSVAGINAL COMPLETED DATE/TME: 03/17/2019 17:22 CLINICAL HISTORY: 24 years, Female, 5 weeks lower abdominal pain COMPARISON: Prior study from 01/19/2017 TECHNIQUE: Transvaginal ultrasound of the pelvis was performed. LIMITATIONS: None. FINDINGS: Uterus measures 9.3 x 5.4 x 5.2 cm in size. An a single intrauterine gestational sac is identified with measurements as follows: [place]-rump length: 0.3 cm Cardiac motion: 112 bpm Yolk sac: Present, measuring 0.4 cm Cervix is closed measuring 2.4 cm in length. Estimated gestational age is 5 weeks and 6 days. An area of ill-defined hypoechogenicity is noted about the periphery of the gestational sac measuring 0.8 x 0.8 x 0.6 cm in size, suspicious for a small amount of perigestational hemorrhage. Right ovary measures 3.1 x 1.6 x 2.5 cm in size. It contains an ovoid hypoechoic lesion measuring 1.7 x 1.3 x 1.4 cm in size, either indicating a corpus luteal or hemorrhagic cyst. Otherwise, the right ovary demonstrates normal low resistance arterial waveforms as well as venous flow. Left ovary measures 2.5 x 1.3 x 1.4 cm in size. It demonstrates normal echogenicity as well as normal low resistance arterial waveforms/venous flow. A small amount of fluid is noted about the cul-de-sac. IMPRESSION: Single viable intrauterine , as above described. Suspect small amount of subchorionic hemorrhage measuring 0.8 x 0.6 x 0.8 cm in size. Hypoechoic lesion located about the right ovary likely either indicates a corpus luteal or hemorrhagic cyst. copyright 2010 [employer]- All Rights Reserved
[2019-03-17] MEDS ORDERED: ONDANSETRON 4 MG TAB.RAPDIS PO ONE (21:46)
--- NOTE | 2019-03-17 21:51 | ER Document Report ---
ED GI/ - General Chief Complaint: Abdominal Pain Stated Complaint: ABDOMINAL PAIN Time Seen by Provider: 03/17/19 17:22 Mode of Arrival: Ambulatory Information source: Patient Notes: 34-year-old female presented to ED for lower abdominal pain. She is 2 para 1. She states she is about 5 weeks with cramping and nausea. She states she has not yet had a ultrasound. She denied any vomiting or vaginal bleeding when I saw her intent. Urine fluids blood and ultrasound were ordered. I have discussed all the results with the patient. She has elected to take Zofran even after I have discussed the risk and benefits. She states she took it was her first and she would like one now. She was medicated with a Zofran while in the emergency room. I have discussed jeanine candy and gum with her. She will look to see if she can find that to use that. I have also given her list of local primary doctors and women's health care's number. Patient will be discharged home to follow-up with the doctor. Ultrasound does show a viable intrauterine with a corpus luteum and a small subchorionic hemorrhage TRAVEL OUTSIDE OF THE [place] IN LAST 30 DAYS: No - HPI Patient complains to provider of: Pelvic pain, . No: Vaginal bleeding, Vaginal discharge, Vaginal pain Onset: Other - Months Timing/Duration: Intermittent Quality of pain: Cramping Severity at maximum: Moderate Severity in ED: Moderate Pain Level: 3 Location: Pelvis Vaginal bleeding (Compared to normal period): None Menstrual period history: : 2 Para: 1 heart tones (bpm): 112 - via ultrasound OB ultrasound done: Yes Associated symptoms: Nausea Exacerbated by: Movement Relieved by: Denies Similar symptoms previously: Yes Recently seen / treated by doctor: Yes - Related Data Allergies/Adverse Reactions: banana Allergy (Verified 07/26/17 18:42) Swelling of Throat cat dander Allergy (Verified 07/26/17 18:42) Swelling of Throat kiwi Allergy (Verified 07/26/17 18:42) Swelling of Throat Past Medical History - General Information source: Patient - Social History Smoking Status: Former Smoker Chew tobacco use (# tins/day): No Frequency of alcohol use: None Drug Abuse: None Lives with: Family Family History: Reviewed & Not Pertinent Patient has suicidal ideation: No Patient has homicidal ideation: No - Past Medical History Cardiac Medical History: Reports: Hx Hypertension - occ-no meds Pulmonary Medical History: Reports: Hx Bronchitis - hx of EENT Medical History: Reports: None Neurological Medical History: Reports: None. Denies: Hx Cerebrovascular Accident, Hx Seizures Endocrine Medical History: Reports: None Renal/ Medical History: Reports: None Malignancy Medical History: Reports: None GI Medical History: Reports: None Musculoskeletal Medical History: Reports None Skin Medical History: Reports None Psychiatric Medical History: Reports: None Traumatic Medical History: Reports: None Infectious Medical History: Reports: None Past Surgical History: Reports: Hx Section - Immunizations Hx Diphtheria, Pertussis, Tetanus Vaccination: Yes Review of Systems - Review of Systems Constitutional: No symptoms reported EENT: No symptoms reported Cardiovascular: No symptoms reported Respiratory: No symptoms reported Gastrointestinal: No symptoms reported, Nausea Genitourinary: No symptoms reported Female Genitourinary: , Other - pelvic pain. denies: Vaginal discharge, Vaginal bleeding Musculoskeletal: No symptoms reported Skin: No symptoms reported Hematologic/Lymphatic: No symptoms reported Neurological/Psychological: No symptoms reported -: Yes All other systems reviewed and negative Physical Exam - Vital signs Vitals: Temp Pulse Resp BP Pulse Ox 98.5 F 108 H 16 111/66 100 03/17/19 16:28 03/17/19 16:28 03/17/19 16:28 03/17/19 16:28 03/17/19 16:28 Interpretation: Normal - General General appearance: Appears well, Alert - HEENT Head: Normocephalic, Atraumatic Eyes: Normal Pupils: PERRL - Respiratory Respiratory status: No respiratory distress Chest status: Nontender Breath sounds: Normal Chest palpation: Normal - Cardiovascular Rhythm: Regular Heart sounds: Normal auscultation Murmur: No - Abdominal Inspection: Normal Distension: No distension Bowel sounds: Normal Tenderness: Tender - pelvic Organomegaly: No organomegaly - Back Back: Normal, Nontender - Extremities General upper extremity: Normal inspection, Nontender, Normal color, Normal ROM, Normal temperature General lower extremity: Normal inspection, Nontender, Normal color, Normal ROM, Normal temperature, Normal weight bearing. No: John's sign - Neurological Neuro grossly intact: Yes Cognition: Normal Orientation: AAOx4 [place] Coma Scale Eye Opening: Spontaneous [place] Coma Scale Verbal: Oriented [place] Coma Scale Motor: Obeys Commands [place] Coma Scale Total: 15 Speech: Normal Motor strength normal: LUE, RUE, LLE, RLE Sensory: Normal - Psychological Associated symptoms: Normal affect, Normal mood - Skin Skin Temperature: Warm Skin Moisture: Dry Skin Color: Normal Course - Re-evaluation Re-evalutation: 03/17/19 21:57 Discussed labs and ultrasound results with patient and written report given to patient to follow-up with primary doctor and [facility]. Patient will be discharged home. Patient will be medicated with Zofran in the emergency room as she is stated she used this with her first and she would like one now for her nausea and vomiting. I have discussed jeanine and jeanine candy with patient for use during her . Patient states she will go by the vitamins tonight and get them started. Patient was discharged home after she verbalized understanding and agreement with treatment plan. 03/17/19 22:22 Patient requested a prescription for Zofran. I have reiterated the risk and benefits for Zofran. Patient states she had it with her first she understands the risks she is taken and she would like the prescription for Zofran because she cannot work or go to school without the Zofran during her . Patient verbalized understanding of the risk of defects. - Vital Signs Vital signs: Temp Pulse Resp BP Pulse Ox 98.1 F 85 18 136/75 H 100 03/17/19 22:16 03/17/19 22:16 03/17/19 22:16 03/17/19 22:16 03/17/19 22:16 - Laboratory Result Diagrams: 03/17/19 18:20 03/17/19 18:20 Laboratory results interpreted by me: 03/17/19 03/17/19 17:05 18:20 Beta HCG, Quant 46074.00 H Urine Protein 30 H Urine Ketones 20 H - Diagnostic Test Radiology reviewed: Image reviewed, Reports reviewed Discharge - Discharge Clinical Impression: Pelvic pain affecting in first trimester, antepartum, Nausea Subchorionic hematoma in first trimester Qualifiers: Fetus number: single or unspecified fetus Qualified Code(s): O41.8X10 - Other specified disorders of amniotic fluid and membranes, first trimester, not applicable or unspecified Condition: Stable Disposition: HOME, SELF-CARE Instructions: Family Physicians / Practices, [facility] ([facility] Additional Instructions: Pelvic Pain in Lower abdominal pain during can have many causes. We look for serious causes such as appendicitis, tubal , miscarriage, placental separation, or urinary tract infection. Less serious causes of pain include corpus luteum cyst (ovarian cyst of ) or stretching of the pelvic tissues by the enlarging uterus. Sometimes the pain comes from the bowels. If no specific cause for the pain is found, we attribute the pain to stretching of the uterine ligaments. This is called "round ligament strain." It is not dangerous. Just rest until the pain goes away. Call us or come back for reexamination if any problems occur, such as: (1) Pain that becomes more severe, steady, or becomes concentrated in one specific area. Also, pain that is more severe with movement or coughing. (2) Vomiting that persists or becomes more frequent. (3) Blood in the vomitus, urine, or bowel movements. Blood in the stool may have a tarry or black appearance. (4) Shaking chills or fever greater than 100 degrees. (5) The abdomen becomes more distended or swollen. (6) Bowel movements cease. (7) Vaginal bleeding. Nausea or Vomiting, Nonspecific Vomiting (or nausea without vomiting) can be caused by many different problems. Of course, it can mean that something's wrong with the stomach, such as "stomach flu," ulcers, or inflammation. But it can also be a symptom of a problem that has nothing to do with the stomach or intestines. Vomiting is common with severe headaches, earaches, and tonsillitis. We see it with pneumonia or heart attacks. Drugs can cause nausea. Many abdominal problems cause vomiting; for example, gallstones, kidney stones, pancreatitis, and intestinal obstruction (blocked bowels). In most cases, curing the vomiting depends on fixing the problem that caused it. For temporary relief, we may use an anti-nausea medicine. For home use, we can prescribe suppositories, chewable pills, pills that dissolve in the mouth, or liquid anti-nausea drugs. If the vomiting seems to be caused by a problem in the stomach, acid-suppressing drugs may be prescribed as well. It's important to avoid dehydration. Sip clear liquids. Take increasing amounts of fluid over the first 24 hours. Then start small amounts of bland foods (such as dry toast, applesauce, mashed potato). Avoid aspirin, tobacco, and alcohol. Gradually resume your usual diet. If the vomiting worsens, if the problem that's making you vomit worsens, or if there's evidence of bleeding in the stomach (such as black, tarry stool, bloody or black vomit, or lightheadedness), you should return immediately. Call your doctor if you aren't improved in 24 to 36 hours. Antinausea Medication You have been given a medication to suppress nausea and vomiting. This type of medication can be given as a shot, pill, or suppository. It will usually last for many hours. Pills and shots usually last six to eight hours, suppositories last about 12 hours. For the typical illness, only one or two doses of the medication may be necessary. Mild lightheadedness may occur. This type of medicine can cause drowsiness. Do not drive or operate dangerous machinery while under its influence. Do not mix with alcohol. See your doctor at once if you have muscle spasms or tightness, or uncontrollable motions (particularly of the neck, mouth, or jaw). Persistent vomiting or severe lightheadedness should also be evaluated by the physician. Jeanine sometimes will help with nausea with . You can buy this at the [employer] store. Please go by [employer] as a health food store and try to get some jeanine to help with your nausea. You have elected to take a Zofran at this time. You state you used Zofran with your first and would like one tonight for your nausea. I have discussed your ultrasound and lab results with you and given you a written report of these results. You do have a small subchorionic bleed which is a small amount of blood between the placenta and the uterus you also have a ovarian cyst which is probably a corpus luteum which is normal in early . These follow-up with your primary doctor and your [facility]. FOLLOW-UP CARE: If you have been referred to a physician for follow-up care, call the physicians office for an appointment as you were instructed or within the next two days. If you experience worsening or a significant change in your symptoms, notify the physician immediately or return to the Emergency Department at any time for re-evaluation. Prescriptions: Ondansetron [Zofran Odt 4 mg Tablet] 1 tab PO Q6H #15 tab.rapdis Forms: Return to School, Return to Work
[2019-03-17 22:18] VITALS: BP 136/75
== END 2019-03-17 22:27 | disposition home or self-care (01) ==
LOC: ER 15:57
DX: O46.91 Antepartum hemorrhage, unspecified, first trimester (principal); O26.891 Other specified pregnancy related conditions, first trimester; R10.30 Lower abdominal pain, unspecified; R11.0 Nausea; R10.2 Pelvic and perineal pain; O16.1 Unspecified maternal hypertension, first trimester; Z3A.01 Less than 8 weeks gestation of pregnancy; Z87.891 Personal history of nicotine dependence
CPT/HCPCS: 99284; 96360; 36415; 84702; 85025; 80053; 81001; 76817; 93976; S0119; J7030

== ENCOUNTER 2020-11-07 20:40 | Emergency (ER) | payer MEDICAID ==
--- NOTE | 2020-11-07 21:26 | ER Document Report ---
ED Medical Screen (RME) - General Chief Complaint: Abdominal Pain Stated Complaint: ABDOMINAL PAIN Time Seen by Provider: 11/07/20 21:18 Notes: HPI: 25-year-old female who is a A2 presenting for evaluation of left pelvic pain over the last 2 to 3 days with vaginal spotting when wiping. Has not seen POLITICAL ADVISOR for this found out she was 3 days ago. Denies fever has had some nausea no vomiting. PHYSICAL EXAMINATION: exam deferred in triage. Mild tenderness across the suprapubic left pelvis on palpation I have greeted and performed a rapid initial assessment of this patient. A comprehensive ED assessment and evaluation of the patient, analysis of test results and completion of medical decision making process will be conducted by an additional ED providers. Please note that clinical decision making for this patient was made during the 2019 pandemic of novel coronavirus which caused a significant strain on the healthcare system including at this particular facility. Criteria for admission discharge and level of care decisions as well as treatment decisions have necessarily changed TRAVEL OUTSIDE OF THE [place] IN LAST 30 DAYS: No - Related Data Allergies/Adverse Reactions: banana Allergy (Verified 07/26/17 18:42) Swelling of Throat cat dander Allergy (Verified 07/26/17 18:42) Swelling of Throat kiwi Allergy (Verified 07/26/17 18:42) Swelling of Throat Past Medical History - Past Medical History Cardiac Medical History: Reports: Hx Hypertension - occ-no meds Denies: Hx Coronary Artery Disease, Hx Heart Attack Pulmonary Medical History: Reports: Hx Bronchitis - hx of Denies: Hx Asthma, Hx COPD, Hx Pneumonia Neurological Medical History: Denies: Hx Cerebrovascular Accident, Hx Seizures Renal/ Medical History: Denies: Hx Peritoneal Dialysis GI Medical History: Denies: Hx Crohn's Disease, Hx Irritable Bowel, Hx Ulcerative Colitis Musculoskeltal Medical History: Denies Hx Arthritis Past Surgical History: Reports: Hx Section - Immunizations Hx Diphtheria, Pertussis, Tetanus Vaccination: Yes Physical Exam - Vital signs Vitals: Temp Pulse Resp BP Pulse Ox 98.3 F 103 H 16 128/97 H 99 11/07/20 21:01 11/07/20 21:01 11/07/20 21:01 11/07/20 21:01 11/07/20 21:01 Course - Vital Signs Vital signs: Temp Pulse Resp BP Pulse Ox 98.3 F 103 H 16 128/97 H 99 11/07/20 21:01 11/07/20 21:01 11/07/20 21:01 11/07/20 21:01 11/07/20 21:01
[2020-11-07 21:50] LABS: ABSOLUTE EOSINOPHILS # (AUTO) 0.1 10^3/uL (0.0-0.6); ABSOLUTE LYMPHOCYTES (AUTO) 2.8 10^3/uL (0.5-4.7); ABSOLUTE MONOCYTES (AUTO) 0.7 10^3/uL (0.1-1.4); ABSOLUTE NEUT (AUTO) 2.8 10^3/uL (1.7-8.2); BASOPHILS % (AUTO) 0.6 % (0-2); EOSINOPHILS % (AUTO) 1.2 % (0-6); HEMOGLOBIN 13.3 g/dL (12.0-15.5); LYMPHOCYTES % (AUTO) 43.1 % (13-45); MEAN CORPUSCULAR HEMOGLOBIN 29.9 pg (27.0-33.4); MEAN CORPUSCULAR HGB CONC 34.2 g/dL (32.0-36.0); MEAN CORPUSCULAR VOLUME 88 fl (80-97); MONOCYTES % (AUTO) 10.7 % (3-13); PLATELET COUNT 169 10^3/uL (150-450); RED BLOOD COUNT 4.46 10^6/uL (3.72-5.28); RED CELL DISTRIBUTION WIDTH 13.2 % (11.5-14.0); SEGMENTED NEUTROPHILS % (AUTO) 44.4 % (42-78); TOTAL CELLS COUNTED % (AUTO) 100 %; WHITE BLOOD COUNT 6.4 10^3/uL (4.0-10.5)
[2020-11-07 21:52] LABS: APPEARANCE,URINE SLIGHTLY-CLOUDY; BILIRUBIN,URINE NEGATIVE (NEGATIVE); COLOR,URINE YELLOW; GLUCOSE, URINE NEGATIVE (NEGATIVE); KETONES,URINE 20 mg/dL (NEGATIVE); LEUKOCYTE ESTERASE,URINE NEGATIVE (NEGATIVE); NITRITE,URINE NEGATIVE (NEGATIVE); PROTEIN,URINE 30 mg/dL (NEGATIVE); URINE SPECIFIC GRAVITY 1.033
[2020-11-07 22:07] LABS: ALBUMIN 4.6 g/dL (3.5-5.0); ALKALINE PHOSPHATASE 45 U/L (38-126); ANION GAP 9 (5-19); ASPARTATE AMINO TRANSFERASE 24 U/L (14-36); BLOOD UREA NITROGEN 12 mg/dL (7-20); CALCIUM 9.8 mg/dL (8.4-10.2); CARBON DIOXIDE 24 mmol/L (22-30); CHLORIDE 106 mmol/L (98-107); GLUCOSE 74 mg/dL (75-110); POTASSIUM 3.9 mmol/L (3.6-5.0); TOTAL PROTEIN 7.9 g/dL (6.3-8.2)
--- NOTE | 2020-11-07 23:16 | RADIOLOGY REPORT (SQ) ---
EXAM DESCRIPTION: U/S OB TRANSVAG W/DOPPLER RadLex: US TRANSVAGINAL CLINICAL HISTORY: 25 years Female; preg spotting; LMP 09/21/2020 (6 weeks 5 days). Beta-hCG 226 TECHNIQUE: Endovaginal pelvic ultrasound was performed. COMPARISON: None. FINDINGS: Uterus: 7.7 x 4.3 x 4.8 cm. Endometrial canal 4 mm thick. Cervix 2.6 cm long. Right ovary: 3.3 x 2.7 x 2.8 cm. 2.3 x 1.6 x 2.1 cm structure with internal echoes could be a corpus luteum cyst.. Normal vascular flow on Doppler. Left ovary: 2.4 x 1.6 x 1.3 cm. Normal vascular flow on Doppler. No free fluid. No suspicious adnexal masses. IMPRESSION: 1. No gestational sac is identified (likely too early based on beta-hCG level) 2. No adnexal masses. 3. Consider follow-up exam in 2 weeks
--- NOTE | 2020-11-07 23:26 | ER Document Report ---
ED GI/ - General Chief Complaint: Abdominal Pain Stated Complaint: ABDOMINAL PAIN Time Seen by Provider: 11/07/20 21:18 Primary Care Provider: VINITA SILVA MD [ACTIVE PROVISIONAL STAFF] - Follow up tomorrow (Call tomorrow for follow-up appointment on Sunday for repeat hCG) AUGUSTINE LOYD MD [Primary Care Provider] - Follow up as needed Notes: 25-year-old female who states she had a positive home test 2 days ago she is a 4 para 1 with 2 miscarriages presents to the emergency room com plaining of some pelvic cramping that started earlier today. States she noticed bleeding when she wiped but no additional vaginal bleeding. No OB care. Last menstrual cycle September 21. States has not taken anything for her pain. Previous records show a blood type of O+ no need for RhoGam. TRAVEL OUTSIDE OF THE [place] IN LAST 30 DAYS: No - Related Data Allergies/Adverse Reactions: banana Allergy (Verified 07/26/17 18:42) Swelling of Throat cat dander Allergy (Verified 07/26/17 18:42) Swelling of Throat kiwi Allergy (Verified 07/26/17 18:42) Swelling of Throat Past Medical History - General Information source: Patient - Social History Smoking Status: Current Some Day Smoker Frequency of alcohol use: Rare Drug Abuse: None Family History: Reviewed & Not Pertinent Patient has homicidal ideation: No - Past Medical History Cardiac Medical History: Reports: Hx Hypertension - occ-no meds Denies: Hx Coronary Artery Disease, Hx Heart Attack Pulmonary Medical History: Reports: Hx Bronchitis - hx of Denies: Hx Asthma, Hx COPD, Hx Pneumonia Neurological Medical History: Denies: Hx Cerebrovascular Accident, Hx Seizures Renal/ Medical History: Denies: Hx Peritoneal Dialysis GI Medical History: Denies: Hx Crohn's Disease, Hx Irritable Bowel, Hx Ulcerative Colitis Musculoskeletal Medical History: Denies Hx Arthritis Past Surgical History: Reports: Hx Section - Immunizations Hx Diphtheria, Pertussis, Tetanus Vaccination: Yes Review of Systems - Review of Systems Constitutional: No symptoms reported EENT: No symptoms reported Cardiovascular: No symptoms reported Respiratory: No symptoms reported Gastrointestinal: No symptoms reported Genitourinary: No symptoms reported Female Genitourinary: Last menstrual period - September 21, , Other - Pelvic cramping, blood noted when wiping but denies vaginal bleeding or discharge. denies: Vaginal discharge, Vaginal bleeding Musculoskeletal: No symptoms reported Skin: No symptoms reported Hematologic/Lymphatic: No symptoms reported Neurological/Psychological: No symptoms reported -: Yes All other systems reviewed and negative Physical Exam - Vital signs Vitals: Temp Pulse Resp BP Pulse Ox 98.3 F 103 H 16 128/97 H 99 11/07/20 21:01 11/07/20 21:01 11/07/20 21:01 11/07/20 21:01 11/07/20 21:01 - Notes Notes: GENERAL: Mild acute distress, non-toxic appearance. HEAD: Normal with no signs of head trauma. EYES: PERRLA, EOMI, conjunctiva normal, no discharge. EARS: Hearing grossly intact. NOSE: Normal. THROAT: Oropharynx is normal. NECK: Normal range of motion, no tenderness, supple, no lymphadenopathy, No adenopathy, no JVD. CHEST: Clear breath sounds bilaterally. No wheezes, rales, or rhonchi. CARDIAC: Regular rate and rhythm. S1 and S2, without murmurs, gallops, or rubs. VASCULAR: No Edema. Peripheral pulses normal and equal in all extremities. ABDOMEN: Normal and soft with no tenderness, no masses or pulsatile masses. No organomegaly. Positive bowel sounds x4. No CVA tenderness noted bilaterally. GASTROINTESTINAL: Bowel sounds normal LYMPATHTIC: No lymphadenopathy noted. MUSCULOSKELETAL: Good range of motion of all major joints. Extremities without clubbing, cyanosis or edema. NEUROLOGICAL: Alert and oriented x 3. No focal sensory or strength deficits. Speech normal. Follows commands appropriately. PSYCHIATRIC: Normal Affect, judgement and mood. SKIN: Normal appearance with no rashes or lesions. Course - Re-evaluation Re-evalutation: 11/07/20 23:22 Patient refused a pelvic exam. She is resting comfortably she is currently pain-free on exam. Denies any pain denies any vaginal bleeding. Previous records show blood type is O+ reviewed hCG level of 226.45. Reviewed ultrasound which shows a right corpus luteum cyst no gestational sac no intrauterine at this time. Patient is counseled on the importance of a repeat hCG level in 48 hours with TILE POWER SHEAR OPERATOR. She will be given on-call physician. If she is unable to secure an appointment for repeat hCG in 48 hours she is to return to the emergency room. Patient was given strict return to the emergency room guidelines. Return for any new or worsening symptoms. All questions were answered. Patient verbalized understanding and agrees with plan of care. 11/07/20 23:42 11/07/20 23:42 - Vital Signs Vital signs: Temp Pulse Resp BP Pulse Ox 98.1 F 98 17 125/68 99 11/07/20 23:41 11/07/20 23:41 11/07/20 23:41 11/07/20 23:41 11/07/20 23:41 - Laboratory Results Result Diagrams: 11/07/20 21:33 11/07/20 21:33 Laboratory Results Interpreted: 11/07/20 11/07/20 21:33 21:33 Glucose 74 L Beta HCG, Quant 226.45 H Urine Protein 30 H Urine Ketones 20 H Urine Urobilinogen 2.0 H Urine Ascorbic Acid 20 H Critical Laboratory Results Reviewed: No Critical Results - Radiology Results Critical Radiology Results Reviewed: No Critical Results Discharge - Discharge Clinical Impression: Pelvic pain during Condition: Stable Disposition: HOME, SELF-CARE Instructions: Ovarian Cyst ([facility]), Pelvic Pain in ([facility]) Additional Instructions: Can take Tylenol as needed for pain not to exceed 8 regular strength Tylenol in 24 hours. He need to have a repeat hCG in 48 hours. If unable to secure an appointment with an TILE POWER SHEAR OPERATOR return to the emergency room. Return to emergency room for any new or worsening symptoms. Referrals: AUGUSTINE LOYD MD [Primary Care Provider] - Follow up as needed VINITA SILVA MD [ACTIVE PROVISIONAL STAFF] - Follow up tomorrow (Call tomorrow for follow-up appointment on Sunday for repeat hCG)
[2020-11-07 23:42] VITALS: BP 125/68
== END 2020-11-07 23:41 | disposition home or self-care (01) ==
LOC: ER 20:40
DX: O34.81 Maternal care for other abnormalities of pelvic organs, first trimester (principal); N83.11 Corpus luteum cyst of right ovary; O26.891 Other specified pregnancy related conditions, first trimester; R10.2 Pelvic and perineal pain; O99.331 Smoking (tobacco) complicating pregnancy, first trimester; F17.200 Nicotine dependence, unspecified, uncomplicated; O16.1 Unspecified maternal hypertension, first trimester; Z91.018 Allergy to other foods; Z91.048 Other nonmedicinal substance allergy status; Z3A.01 Less than 8 weeks gestation of pregnancy
CPT/HCPCS: 36415; 76817; 80053; 81001; 84702; 85025; 93976; 99284

== ENCOUNTER 2020-11-10 19:35 | Emergency (ER) | payer MEDICAID ==
[2020-11-10 20:03] VITALS: BP 121/76
== END 2020-11-10 21:44 | disposition left against medical advice (07) ==
LOC: ER 19:35
DX: Z53.21 Procedure and treatment not carried out due to patient leaving prior to being seen by health care provider (principal)